=== PATIENT | female | born 1985 | race Caucasian/White ===

== ENCOUNTER 2021-07-18 07:15 | Outpatient (REF) | payer MEDICARE, SELFPAY ==
--- NOTE | ~2021-07-18 | XR_ITS ---
EXAMINATION: XR KNEE RT 2V, XR KNEE STANDING BI CLINICAL INFORMATION: Pain COMPARISON: None. TECHNIQUE: Standing AP views of both knees and lateral and sunrise views of the right knee FINDINGS: No acute fracture or dislocation. Mild left genu valgus. There are marginal osteophytes of the medial and lateral tibiofemoral compartments bilaterally, more pronounced on the left with associated moderate narrowing of the lateral tibiofemoral compartment joint space on the left and accompanying subchondral sclerosis. Small patellofemoral osteophyte present on the right. No knee joint effusion on the right. XR/XR knee RT 2V IMPRESSION: Tricompartmental degenerative changes present bilaterally, with accompanying genu valgus on the left, accompanied by narrowing of the left lateral tibiofemoral compartment joint space.
--- NOTE | ~2021-07-18 | XR_ITS ---
EXAMINATION: XR KNEE RT 2V, XR KNEE STANDING BI CLINICAL INFORMATION: Pain COMPARISON: None. TECHNIQUE: Standing AP views of both knees and lateral and sunrise views of the right knee FINDINGS: No acute fracture or dislocation. Mild left genu valgus. There are marginal osteophytes of the medial and lateral tibiofemoral compartments bilaterally, more pronounced on the left with associated moderate narrowing of the lateral tibiofemoral compartment joint space on the left and accompanying subchondral sclerosis. Small patellofemoral osteophyte present on the right. No knee joint effusion on the right. XR/XR knee standing BI IMPRESSION: Tricompartmental degenerative changes present bilaterally, with accompanying genu valgus on the left, accompanied by narrowing of the left lateral tibiofemoral compartment joint space.
== END 2021-07-18 07:16 | disposition home or self-care (01) ==
LOC: HO.HOSX 07:15
PROVIDERS: Visit Provider Physician Assistant
DX: M17.11 Unilateral primary osteoarthritis, right knee (principal)
CPT/HCPCS: 73560; 73565; 99202

== ENCOUNTER → 2021-09-13 15:22 | Outpatient (BNVA) | payer MEDICARE, SELFPAY | PROVIDERS: Visit Provider Physician Assistant | DX: M17.11 Unilateral primary osteoarthritis, right knee (principal) | CPT/HCPCS: 20610; J7318 ==

== ENCOUNTER → 2021-11-21 12:56 | Outpatient (BNVA) | payer MEDICARE, SELFPAY | PROVIDERS: Visit Provider Physician Assistant | DX: M17.11 Unilateral primary osteoarthritis, right knee (principal); M25.361 Other instability, right knee; Z88.8 Allergy status to other drugs, medicaments and biological substances | CPT/HCPCS: 99212 ==

== ENCOUNTER 2021-12-13 19:36 | Outpatient (REF) | payer OTHER, SELFPAY ==
--- NOTE | ~2021-12-13 | MR_ITS ---
EXAMINATION: MR KNEE WITHOUT CONTRAST, RIGHT CLINICAL INFORMATION: Right knee pain. COMPARISON: Radiographs 07/18/2021. TECHNIQUE: MRI of the knee without contrast was performed using routine sequences on a high-field scanner. FINDINGS: MENISCI: Medial Meniscus: Chronic peripheral vertical longitudinal tear of the posterior horn. Lateral Meniscus: Inner margin tearing of the posterior horn extending from the meniscal root. LIGAMENTS: Cruciate: Chronic complete ACL tear with resorption. The posterior cruciate ligament is intact. Collateral: Intact EXTENSOR MECHANISM: Intact. ARTICULAR CARTILAGE/BONE: Patellofemoral Compartment: Mild cartilage thinning and irregularity of the medial patellar facet. Medial Compartment: Focal cartilage signal heterogeneity and subchondral marrow edema at the lateral aspect of the weightbearing femoral condyle. There are also degenerative marrow changes of the tibia anteriorly. Small marginal osteophytes. Lateral Compartment: Near full-thickness cartilage loss of the posterior weightbearing femoral condyle and posterior aspect of the tibia with small marginal osteophytes. JOINT FLUID AND BURSAE: Small joint effusion. MR/MR knee RT wo con IMPRESSION: Chronic complete ACL tear with resorption. Chronic vertical longitudinal tear at the far periphery of the posterior horn of the medial meniscus. Irregular inner margin tearing of the posterior horn of the lateral meniscus. Moderate lateral and mild medial/patellofemoral compartment osteoarthritis with a small joint effusion.
== END 2021-12-13 19:37 | disposition home or self-care (01) ==
LOC: HO.MRI 19:36
PROVIDERS: Visit Provider Physician Assistant
DX: M17.11 Unilateral primary osteoarthritis, right knee (principal)
CPT/HCPCS: 73721

== ENCOUNTER → 2021-12-26 14:12 | Outpatient (BNVA) | payer MEDICARE, SELFPAY | PROVIDERS: PCP Radiology Diagnostic Radiology; Visit Provider Orthopaedic Surgery | DX: M17.0 Bilateral primary osteoarthritis of knee (principal); S83.511A Sprain of anterior cruciate ligament of right knee, initial encounter; M25.361 Other instability, right knee | CPT/HCPCS: 99202 ==

== ENCOUNTER 2022-02-14 15:00 | Outpatient (RCR) | payer MEDICARE, SELFPAY ==
--- NOTE | 2022-01-05 15:54 | MHC.PT.EP ---
[facility] [place] Office [place] Office [place] Office [address] Andie Ramos [address] [phone] F: [phone] F: [phone] F: [phone] F: [phone] Physical Therapy Plan of Care Date of Evaluation: Date of Surgery: n/a Diagnosis: sprain of R ACL Assessment: Patient is a 36 year old female presenting to PT with complaints of pain in her R knee. Pt reports onset of pain began 2017 due to falling off a jungle gym and resulting in a torn ACL. She presents today with impairments in pain, hip strength, isolated quad strength, and gait mechanics. 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 Pt expresses skilled nursing goal of getting stronger, and is motivated to work towards this in PT. Clinical presentation today is most consistent with signs and sx associated with MRI findings of chronic ACL tear and pt will benefit from skilled PT to address the following problems and impairments noted upon evaluation: pain, hip strength, isolated quad strength, and gait mechanics. These problems limit the patient with the following functional activities: ambulation, work, stair negotiation, ADLs. The prescribed treatment plan of care is medically necessary. Co-morbidities of chronic ACL tear and hypermobility at all joints were identified and taken into considerations of plan of care. Pt was educated on HEP, role of PT, prognosis, POC. Frequency and Duration: The patient will be seen 2 x week x 4 weeks Short Term Goals: Pt will demonstrate improved hip MMT by 1/3 grade in 2 weeks for improved lumbopelvic stability. Pt will demonstrate improved pain at rest to <4/10 in 2 weeks for improved QOL. Development Lead Goals: Pt will demonstrate improved LEFI score by 9 points in 4 weeks for improved functional mobility. Pt will demonstrate ability ability to negotiate stairs with min to no pain in 4 weeks for improved access to her home. Pt will demonstrate improved ability to ambulate with min to no antalgia and dynamic valgus in 4 weeks. Treatment Plan: Modalities to reduce pain, spasms and effusion. Manual therapy to restore motion and function. Therapeutic exercise to improve strength and flexibility. Neuromuscular re-education for posture and balance. Therapeutic activities to return to functional activities of daily living. Electronically signed by: Maritza Bonilla, PT, DPT, ATC Please sign and return to therapist. Thank you for your referral.
--- NOTE | 2022-02-14 16:00 | MHC.PT.DC ---
[facility] [place] Office [place] Office [place] Office [address] Andie Ramos [address] [phone] F: [phone] F: [phone] F: [phone] F: [phone] Physical Therapy Discharge Report Diagnosis: sprain of R ACL Date of Surgery: n/a Date of Evaluation: 01/05/22 Date of Discharge: 02/14/22 Treatments to Date: 12 Cancellations to Date: 0 No Shows to Date: 0 Discharge Status: Independent with HEP Recommend MD Follow-up Discharge Summary: Pt has made some progress since start of care however she is still having pain and limitations that are functional which 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 She has only improved by 1 point on the LEFI supporting her limited functional progress. Question how much of this is due to her chronic ACL rupture. She also continues to have quite a bit of impaired gait mechanics. Despite this she is independent with her HEP and reports she is compliant. Discussion had with pt regarding importance of continuing HEP for a couple more months and if she is still experiencing functional limitations then recommend following up with ortho for further management. At this time max benefits of skilled PT have been provided and skilled PT is no longer indicated at this time. Pt is in agreement with d/c today. Electronically signed by: Maritza Bonilla, PT, DPT, ATC Please sign and return to therapist. Thank you for your referral.
== END 2022-02-14 16:00 | disposition home or self-care (01) ==
LOC: HO.PTCHIC 15:00
PROVIDERS: PCP Family Medicine; Visit Provider Orthopaedic Surgery
DX: M17.0 Bilateral primary osteoarthritis of knee (principal); M25.361 Other instability, right knee; S83.511A Sprain of anterior cruciate ligament of right knee, initial encounter
CPT/HCPCS: 97110; 97161

== ENCOUNTER 2023-12-06 09:26 | Outpatient (REF) | payer OTHER, SELFPAY ==
--- NOTE | ~2023-12-06 | XR_ITS ---
EXAMINATION: XR KNEE, RIGHT CLINICAL INFORMATION: Pain, in unspecified knee. COMPARISON: MR right knee December 14, 1999. Right knee radiographs and standing bilateral knee radiograph 07/18/2021. TECHNIQUE: AP standing view of bilateral knees. Lateral and sunrise views of the right knee. FINDINGS: RIGHT KNEE: AP standing view of the right knee demonstrates moderate narrowing of the lateral compartment with small medial and lateral marginal osteophytes. LEFT KNEE: Moderate to marked narrowing of the lateral compartment with marginal osteophytes. Moderate left joint effusion. Asymmetric lateral posterior patellar osteophytes. XR/XR knee RT 3V IMPRESSION: Moderate degenerative changes bilateral knees.
== END 2023-12-06 09:27 | disposition home or self-care (01) ==
LOC: HO.HOSX 09:26
PROVIDERS: Visit Provider Physician Assistant
DX: S83.511A Sprain of anterior cruciate ligament of right knee, initial encounter (principal); M17.11 Unilateral primary osteoarthritis, right knee; E11.9 Type 2 diabetes mellitus without complications
CPT/HCPCS: 20610; 73562; 99212; J1010; J1040

== ENCOUNTER 2023-12-06 15:07 | Outpatient (AMB) | payer MEDICARE, SELFPAY ==
--- NOTE | 2023-12-06 15:12 | A.OFFVIS_ITS ---
Intake Intake Visit Reasons: OV - right knee OA Intake Note: Stacey is a 36 year old female who presents today for a follow up for her right knee OA. Patient reports she finds relief with the injections. She states that she would like to repeat the injection. Allergies ibuprofen [IBUPROFEN] Allergy (Unknown, Verified 12/06/23 15:31) SWELLING Benadryl Allergy (Unknown, Uncoded 11/21/21 13:03) Hives From BENADRYL Allergy (Unknown, Uncoded 11/21/21 13:03) UNKNOWM Ibuprofen Allergy (Unknown, Uncoded 11/21/21 13:03) Hives HPI OV - right knee OA HPI Details 38-year-old female who presents in the [facility] today for a follow up of right knee osteoarthritis with a complete tear of the ACL. She received a Du rolane injection in the right knee on 09/13/2021. The patient was last seen in the office by Dr. Cormier on 12/26/2021. She was given a lateral unloading brace for daily activities. An order for PT was made for her to focus on hips, butt, and quad strengthening. [facility] Medical History (Updated 12/06/23 @ 15:28 by Vanita Manzanares) Acute asthmatic bronchitis History of PCOS Social History (Updated 11/21/21 @ 13:05 by Tracy Frye [facility]) Current occupational status: employed and disabled Current occupation: rt hand / online [employer] Review of Systems Const All systems reviewed & are unremarkable except as noted in HPI and below Physical Exam Const General: no acute distress and alert Orientation/consciousness: patient oriented x3 Neuro General: patient oriented x3 Extrem Other: Right knee: ROM: 0-135 + pivot shift 1+ valgus instability 2+ Candice's No effusion Office Procedures Joint Injection/Drain Joint Injection/Drain Primary Site: right knee Prep: site was prepped using aseptic technique, ethochloride spray was applied and injection warnings given Injected: 80 mg of, DepoMedrol, with 8 mL of (2% plain lido ) and in the joint Approach Used: anterolateral Procedure: The patient tolerated the procedure well, but had some pain with the injection and there was some relief with the local anesthesia Coding 04884 - Large joint Procedure code (CPT) selection complete Assessment & Plan Assessment & Plan (1) Complete tear of right ACL: Code(s): S83.511A - Sprain of anterior cruciate ligament of right knee, initial encounter (2) Unstable right knee: Code(s): M25.361 - Other instability, right knee (3) Osteoarthritis of right knee: Code(s): M17.11 - Unilateral primary osteoarthritis, right knee (4) Diabetes: Code(s): E11.9 - Type 2 diabetes mellitus without complications Plan Ms. Eden is a 38-year-old female who presents in the office today for a follow up of right knee osteoarthritis with a complete tear of the ACL. She received a Durolane injection in the right knee on 09/13/2021. The patient was last seen in the office by Dr. Cormier on 12/26/2021. She was given a lateral unloading brace for daily activities. An order for PT was made for her to focus on hips, butt, and quad strengthening. Patient has a history of diabetes mellitus on Metformin 500 mg PO BID. The patient was offered a cortisone injection in the rightk nee with 80 mg of DepoMedrol. The patient was explained the risk, benefits, and alternatives to receiving this injection. After receiving consent for the injection, the patient had the procedure done while in office today. The patient tolerated the procedure well with no complications. Due to the patient?s history of diabetes, they were instructed to monitor her blood glucose level. The patient was informed that they could see a rise in their numbers and if the numbers became too high, they were instructed to call their PCP. The patient was also informed that they could have facial flushing as a side effect of the injection but this will pass. Follow up will be PRN, or sooner if needed. X-rays of the right knee which were obtained while in the office today and were reviewed by me, Enedina San PA-C, revealed right knee osteoarthritis. Orders: Orders XR knee RT 3V 12/06/23 M25.569 - Pain in unspecified knee Patient Instructions: Scribed by Vanita Manzanares medical typist, for Enedina San PA-C on 12/06/2023 at 3:12 pm, EST. Coding Level of Care Code Est Pt Level 4 (16097) Diagnoses Complete tear of right ACL S83.511A Unstable right knee M25.361 Osteoarthritis of right knee M17.11 Diabetes E11.9 CPT Codes Coding - 97067 Large joint: 33363 - Large joint ([id number])
== END 2023-12-06 15:31 | disposition home or self-care (01) ==
PROVIDERS: PCP Family Medicine; Visit Provider Physician Assistant
DX: M17.11 Unilateral primary osteoarthritis, right knee (principal); S83.511A Sprain of anterior cruciate ligament of right knee, initial encounter; M25.361 Other instability, right knee; E11.9 Type 2 diabetes mellitus without complications
CPT/HCPCS: 20610; 99214